=== PATIENT | female | born 1970 | race African-American/Black ===

== ENCOUNTER → 2021-10-21 07:16 | Outpatient (CLI) | payer OTHER, SELFPAY ==
--- NOTE | ~2021-10-21 | MR_ITS ---
EXAMINATION: MR foot LT wo con DATE: 10/21/2021 08:18 INDICATION: Left foot pain and soft tissue mass at the plantar aspect of the left foot. TECHNIQUE: Magnetic resonance imaging (MRI) of the left fore/mid foot was performed without intraveno us contrast. Sequences included sagittal T1-weighted FSE, sagittal fluid sensitive FSE STIR, coronal PD-weighted FS FSE, coronal T1-weighted FSE, axial PD-weighted FS FSE, and axial PD-weighted FSE. COMPARISON: None FINDINGS: Alignment is normal. There is marrow edema at the fourth proximal phalanx with surrounding soft tissu e edema. There is linear low signal intensity at the head of the fourth proximal phalanx which extend s tendons to the distal articular surface suspicious for nondisplaced intra-articular fracture. Other zavaleta normal bone marrow signal throughout. No loss of T1 marrow signal to suggest a pathologic marrow replacing process. Joint spaces are normal with no joint effusions. Lisfranc ligament complex and th e collateral ligament complex at the metatarsophalangeal and interphalangeal joints are normal. There is a fusiform low signal intensity mass measuring 1.7 cm in proximal to distal length and 8 x 4 mm m aximal orthogonal dimensions on the medial side of the distal plantar aponeurosis located plantar to the proximal diaphysis of the first metatarsal which given location and appearance would be most cons istent with a plantar fibroma. There is mild surrounding soft tissue edema. No other abnormal masses identified. Visualized portions of the flexor and extensor tendons are normal with no tenosynovitis. No bursitis or other abnormal fluid collections.. IMPRESSION: 1. Marrow edema at the right fourth proximal phalanx with suggestion of a nondisplaced intra-articula r fracture at the distal head of the phalanx. Recommend correlation with x-rays and clinical history for trauma at this location. 2. 1.7 x 0.8 x 0.4 cm fusiform low signal intensity mass along the medial/distal aspect of the planta r aponeurosis most consistent with a plantar fibroma. Reviewed, dictated and finalized at location A. OR VICE PRESIDENT IMPRESSION: 1. Marrow edema at the right fourth proximal phalanx with suggestion of a nondi splaced intra-articular fracture at the distal head of the phalanx. Recommend c orrelation with x-rays and clinical history for trauma at this location. 2. 1.7 x 0.8 x 0.4 cm fusiform low signal intensity mass along the medial/dista l aspect of the plantar aponeurosis most consistent with a plantar fibroma.
== END ==
PROVIDERS: PCP Family Medicine; Visit Provider Podiatrist Foot & Ankle Surgery
DX: M72.2 Plantar fascial fibromatosis (principal); M25.579 Pain in unspecified ankle and joints of unspecified foot; M79.89 Other specified soft tissue disorders
CPT/HCPCS: 73718

== ENCOUNTER 2022-02-24 12:53 | Emergency (ER) | payer OTHER, SELFPAY ==
--- NOTE | ~2022-02-24 | CT_ITS ---
EXAMINATION: CT brain wo con DATE: 02/24/2022 17:05 INDICATION: Acute left-sided headache. TECHNIQUE: Computed tomography (CT) of the head was performed without intravenous contrast. The mA wa s adjusted according to patient size. Iterative reconstruction technique was employed. The dose-lengt h product was 605.33 mGy-cm. COMPARISON: None FINDINGS: There is no intracranial hemorrhage, acute infarction, or abnormal intracranial mass lesion . The ventricles are normal in size. The paranasal sinuses are clear. The mastoid air cells are joycelyn l. The orbits are normal. IMPRESSION: 1. Normal brain. Reviewed, dictated and finalized at location A. IMPRESSION: 1. Normal brain.
[2022-02-24 12:59] VITALS: BP 194/95; PULSE 86; RESP 20; TEMP 36.5; O2SAT 99
--- NOTE | 2022-02-24 13:05 | ECG_ITS ---
Measurements Intervals Fowler Rate: 82 P: 76 SC: 150 QRS: 39 QRSD: 85 T: 60 QT: 394 QTc: 463 Interpretive Statements SINUS RHYTHM POSSIBLE RIGHT ATRIAL ENLARGEMENT POSSIBLE LEFT ATRIAL ENLARGEMENT VOLTAGE CRITERIA FOR LVH BORDERLINE ECG Electronically Signed On 02-24-2022 13:19:05 CDT by Rafiq Estrada D.O.
[2022-02-24 13:24] LABS: Basophils Percent Auto 0.2 % (0.2-1.2); Eosinophils Absolute Auto 0.2 K/mm3 (0-0.3); Eosinophils Percent Auto 2.1 % (0-4.4); Hematocrit 42.6 % (37.0-47.0); Hemoglobin 14.9 g/dL (12.0-15.0); Immature Granulocyte Absolute 0.02 K/mm3 (0.00-0.031); Immature Granulocyte Percent A 0.2 % (0-0.5); Lymphocytes Absolute Auto 3.47 K/mm3 (0.9-3.2); Lymphocytes Percent Auto 41.9 % (18.3-44.2); Mean Corpuscular Hemoglobin 30.5 pg (26-34); Mean Corpuscular Volume 87.3 fl (80-100); Mean Platelet Volume 9.3 fl (7.4-10.4); Monocytes Absolute Auto 0.6 K/mm3 (0.1-0.6); Monocytes Percent Auto 7.2 % (2.6-8.5); Neutrophils Percent Auto 48.4 % (45.5-73.1); Platelet Count Result 217 k/mm3 (150-375); Red Blood Count 4.88 M/mm3 (4.2-5.4); Red Cell Distribution Width 13.2 % (11.5-14.5); White Blood Count 8.3 K/mm3 (4.5-10.0)
[2022-02-24 13:36] LABS: INR 1.1; Prothrombin Time 13.7 Seconds (11.1-14.7)
[2022-02-24 13:37] LABS: Alanine Aminotransferase 28 U/L (6-35); Albumin Level 4.7 g/dL (3.5-5.1); Alkaline Phosphatase 89 U/L (38-126); Anion Gap 6 mmol/L (8-16); Aspartate Amino Transferase 27 U/L (14-36); Bilirubin,Total 0.4 mg/dL (0.2-1.3); Blood Urea Nitrogen 11 mg/dL (7-17); Calcium 9.2 mg/dL (8.4-10.2); Carbon Dioxide 28 mmol/L (22-30); Chloride 102 mmol/L (98-107); Estimated CRCL calculation 83 ml/min; Estimated Glomerular Filt Rate > 60; Glucose 102 mg/dL (65-110); Lipase 100 U/L (23-300); Partial Thromboplastin Time 31.4 SECONDS (22.3-36.8); Potassium 4.2 mmol/L (3.4-5.0); Sodium 136 mmol/L (137-145)
[2022-02-24 13:48] LABS: Troponin I < 0.012 ng/mL (0.000-0.034)
[2022-02-24 15:17] VITALS: BP 154/74; PULSE 75; RESP 20; TEMP 36.2; O2SAT 97
[2022-02-24 16:36] LABS: Troponin I < 0.012 ng/mL (0.000-0.034)
--- NOTE | 2022-02-24 16:51 | ED.HA ---
HPI - Headache General Chief Complaint: Headache Stated Complaint: headache Time Seen by Provider: 02/24/22 16:05 Source: patient and RN notes reviewed Mode of arrival: ambulatory Limitations: no limitations History of Present Illness HPI Narrative: This is a 51 year old Female who presents for evaluation of headache . Patient states today she received a Moderna booster when she got off work this morning. She went home and she later woke up with severe left side headache. She reports sharp pain that radiates to her left jaw and neck. She reports her headache woke her up and continued to worsen. She took ibuprofen, Tylenol, hydrocodone and tramadol without relief in her pain. She thinks she may have had blurred vision but that has resolved. She denies chest pain, sob, focal weakness, numbness or tingling. She is concerned that she may be having heart attack. She also noted that her blood pressure was elevated at home 200s systolic. She had hypertension several years ago but she was able to get off medication with weight loss and diet She took an old amlodipine prior to coming to ER. She denies history of heart disease. Related Data Allergies Allergy/AdvReac Type Severity Reaction Status Date / Time amoxicillin Allergy Unknown Skin Verified 01/18/22 11:28 Reaction clavulanic acid Allergy Unknown Rash Verified 01/18/22 11:28 Review of Systems Review of Systems: All systems reviewed & are unremarkable except as noted in HPI and below Constitutional: Constitutional: Denies chills and Denies fever(s) Eyes: Eyes: Reports change in vision ENT: Denies nasal congestion Cardiovascular: Cardiovascular: Denies chest pain and Denies radiating jaw, neck or arm pain Respiratory: Respiratory: Denies cough, Denies dyspnea and Denies wheezing Gastrointestinal: Gastrointestinal: Denies abdominal pain, Denies diarrhea, Reports nausea and Denies vomiting Neurologic: Denies vertigo, Denies dizziness, Denies syncope, Reports headache(s), Denies focal weakness and Denies numbness PMFSH Past Medical History Medical History (Updated 02/24/22 @ 19:00 by Selma Robertson MD) Hypertension Surgical History Surgical History (Updated 02/24/22 @ 18:54 by Selma Robertson MD) Hx of tonsillectomy Social History Social History (Updated 02/24/22 @ 18:54 by Selma Robertson MD) Smoking status: Current every day smoker Exam Const: General: no acute distress and alert Orientation/consciousness: patient oriented x3 HENMT: Head: normocephalic and atraumatic Ears: TM's normal bilaterally Face and sinus: normal facial exam, sinuses nontender and face symmetric Mouth: Yes Normal oral and palatal mucosa present, Yes lip normal, Yes oropharynx normal and Yes moist mucous membranes Throat: posterior oropharynx normal, tonsils normal and uvula midline Eyes: Pupils: Equal, round and reactive pupils present EOM: EOMs intact bilaterally Chest: Chest palpation & inspection: normal inspection of the chest Resp: Effort & Inspection: normal respiratory effort and no retractions Auscultation: clear to auscultation bilaterally Cardio: Rate: regular rate Rhythm: regular rhythm Heart sounds: no murmurs GI: GI Palp: Yes Soft to palpation, No Tenderness to palpation present (GI) and No Guarding due to palpation present (GI) Auscultation: normal bowel sounds : General: Yes no CVA tenderness Back/Spine/Pelvis: Back: no CVA tenderness Neuro: General: patient oriented x3, moves all extremities, no meningeal signs, no focal motor deficits and CN's II-XI intact bilaterally Cranial nerves: Yes Nystagmus not present Speech: normal speech Extrem: General: normal to inspection Psych: Mental Status: mental status grossly normal Affect: normal affect Course Reevaluation(s) Reevaluation #1: Patient is sleeping. She reports she feels much better. Her headache has completely resolved. This may have been due to inf
[2022-02-24] MEDS: KETOROLAC (*BKC) 60 MG/2 ML VIAL IM (17:08)
[2022-02-24] MEDS: ONDANSETRON HCL ODT 4 MG TABLET PO (17:08)
[2022-02-24 19:18] VITALS: BP 142/63; PULSE 75; RESP 16; O2SAT 100
== END 2022-02-24 19:19 | disposition home or self-care (01) ==
PROVIDERS: Emergency Medicine; Emergency Provider General Practice; PCP Family Medicine
DX: R51.9 Headache, unspecified (principal); R03.0 Elevated blood-pressure reading, without diagnosis of hypertension; I10 Essential (primary) hypertension; F17.200 Nicotine dependence, unspecified, uncomplicated; R94.31 Abnormal electrocardiogram [ECG] [EKG]
CPT/HCPCS: 36415; 70450; 80053; 83690; 84484; 85025; 85610; 85730; 93005; 96372; 99284; A9270; J1885